=== PATIENT | male | born 1955 | race American Indian/Alaskan Native ===

== ENCOUNTER 2016-07-23 12:38 | Day surgery (SDC) | payer OTHER ==
--- NOTE | 2016-07-23 13:30 | Anesthesia Day of Surgery ---
Anesthesia Day of Surgery - Day of Surgery Patient Examined: Yes Patient H&P Reviewed: Yes Patient is NPO: Yes
--- NOTE | 2016-07-23 13:32 | Anesthesia Consultation ---
Anesthesia Consult and Med Hx Date of service: 07/23/16 - Airway Anesthetic Teeth Evaluation: Poor (multiple missing/blackened nubs) ROM Head & Neck: Adequate Mental/Hyoid Distance: Adequate Mallampati Class: Class II Intubation Access Assessment: Probably Good - Pulmonary Exam CTA: Yes - Cardiac Exam Cardiac Exam: RRR - Pre-Operative Health Status ASA Pre-Surgery Classification: ASA3 Proposed Anesthetic Plan: MAC - Pulmonary Hx Smoking: No Hx Respiratory Symptoms: Yes (hx lung cancer with partial right lobectomy) Hx Sleep Apnea: Yes (?) - Cardiovascular System Hx Hypertension: Yes - Other Systems Hx Obesity: Yes - Additional Comments Anesthesia Medical History Comments: colon cancer with colostomy
[2016-07-23] MEDS ORDERED: NACL 0.9% 1000 ML 1,000 ML IV SCH (14:00)
[2016-07-23] MEDS ORDERED: DIPRIVAN 10 MG/ML IV ONE ×2 (15:42)
[2016-07-23] MEDS ORDERED: WATER FOR IRRIG STERILE IR ONE (15:45)
[2016-07-23] MEDS ORDERED: XYLOCAINE MPF 2% ONE (15:49)
--- NOTE | 2016-07-23 16:35 | Operative Report ---
Operative Report Operative Report: Date of procedure: 07/23/2016 Procedure: Colonoscopy through colostomy stoma with snare polypectomy Attending physician: Jordin Jerry MD Shape Hand: Jordin Jerry MD Indication: Patient is a 60-year-old male who presents for colonoscopy. He has a past history of colon cancer and is status post a colostomy and segmental resection of the colon. This procedure is done to evaluate patient so that treatment may be directed based on the findings. Consent: Informed consent was obtained after advising the patient and family regarding nature of this procedure, its indications, potential benefits as well as possible complications including but not limited to bleeding perforation and adverse reaction to medication, infection as well as other cardiopulmonary complications. An informed written and verbal consent was then obtained after due opportunity was provided for questions and answers. Monitoring: Patient was monitored continuously with pulse oximetry and electrocardiographic recordings as well as blood pressure recordings. Vital signs remained stable throughout this procedure with no untoward events. Preoperative assessment: Patient was assessed immediately prior to this procedure for capacity to tolerate monitored anesthesia care and moderate sedation as well as general anesthesia. Patient's ASA classification is [2], Mallampati class is [2], Hyomental distance is [3]. Instrument: [] Medications: [] Description of procedure: Patient was placed in a supine position after achieving sedation, a digital examination of the colostomy was performed, following which the colonoscope was introduced through the colostomy and advanced to the cecum which was identified by the cecal valve, the appendiceal orifice, as well as by the cecal strap and direct transillumination. The colonoscope was subsequently withdrawn with careful inspection of all mucosal surfaces. Patient tolerated this procedure well and was subsequently taken to the recovery room. The following findings were noted. Findings: There was a broad-based sessile polyp in the ascending colon measuring approximately 1-1.5 cm. This was removed by snare electrocautery and retrieved. There were a few scattered diverticula seen in the ascending colon as well as also in the descending colon. There was some excoriation around the introitus of the colostomy. There were no other additional lesions except for a few scattered diverticula seen. Impression: Ascending colon polyp status post snare polypectomy Mild diverticulosis Pericolostomy excoriations. Plan: Follow pathology report. High-fiber diet. Repeat colonoscopy in 5 years.
--- NOTE | 2016-07-23 16:36 | Discharge Summary ---
Short Stay Discharge Plan Activity: advance as tolerated Weight Bearing Status: Weight Bear as Tolerated Diet: regular
[2016-07-23 16:56] VITALS: BP 161/90
== END 2016-07-23 12:39 | disposition home or self-care (01) ==
LOC: GIO 12:38
PROVIDERS: ATTEND Internal Medicine Gastroenterology
DX: Z12.11 Encounter for screening for malignant neoplasm of colon (principal); K57.30 Diverticulosis of large intestine without perforation or abscess without bleeding; I10 Essential (primary) hypertension; E66.9 Obesity, unspecified; Z68.39 Body mass index [BMI] 39.0-39.9, adult; Z87.442 Personal history of urinary calculi; Z79.899 Other long term (current) drug therapy; Z85.038 Personal history of other malignant neoplasm of large intestine; Z93.3 Colostomy status; Z85.118 Personal history of other malignant neoplasm of bronchus and lung; Z80.0 Family history of malignant neoplasm of digestive organs; Z83.71 Family history of colonic polyps
CPT/HCPCS: 44394; 88305; J2704; J7030